=== PATIENT | female | born 1970 | race Caucasian/White ===

== ENCOUNTER 2022-05-05 11:11 | Emergency (ER) | payer OTHER ==
[~2022-05-05] VITALS: Ht 162.6 cm; Wt 59.0 kg
--- NOTE | 2022-05-05 11:30 | NUR ---
ASSUME CARE, STATED THAT FIGHTING WITH ROOM MATE AND FEELINGS FUNNING AND THINKS ROOM MATE PUT DRUG IN HER TEA THIS AM. HX OF VIPING POT, CHRONIC USER.
[2022-05-05 11:38] LABS: HEMATOCRIT 45.2 % (31.2-41.9); MEAN CORPUSCULAR HEMOGLOBIN 31.1 uug (24.7-32.8); MEAN CORPUSCULAR VOLUME 93.8 fL (75.5-95.3); PLATELET COUNT (AUTO) 216 K/uL (179-408)
[2022-05-05 12:02] LABS: BILIRUBIN,TOTAL 0.3 mg/dL (0.2-1.0); TOTAL PROTEIN, SERUM 7.8 g/dL (6.4-8.2)
[2022-05-05 12:05] LABS: ACETAMINOPHEN < 2.0 ug/mL (10-30); ETHANOL < 3 MG/DL (0-0)
--- NOTE | 2022-05-05 13:30 | NUR ---
AWAITING URINE DSU RESULTS
[2022-05-05 13:51] LABS: *BILIRUBIN,URIN NEGATIVE (NEGATIVE); *CLARITY,URINE CLEAR (CLEAR); *COLOR,URINE YELLOW (YELLOW); *KETONES,URINE NEGATIVE (NEGATIVE); *UROBILINOGEN,URINE 0.2 E.U./dl (NORMAL); LEUKOCYTE ESTERASE ,URINE NEGATIVE (NEGATIVE); NITRITE, URINE NEGATIVE (NEGATIVE); UGLUCOSE NEGATIVE (NEGATIVE)
[2022-05-05 13:52] LABS: *BLOOD, URINE TRACE (NEGATIVE)
[2022-05-05 14:07] LABS: *CANNABINOID, URINE POSITIVE (NEGATIVE); *COCCAINE, URINE NEGATIVE (NEGATIVE); *OPIATE, URINE NEGATIVE (NEGATIVE); *PHENCYCLIDINE SCREEN,URINE NEGATIVE (NEGATIVE)
[2022-05-05 14:19] LABS: *AMPHETAMINE, URINE NEGATIVE (NEGATIVE)
[2022-05-05 14:22] LABS: BACTERIA,URINE FEW /HPF (NONE SEEN); RBC,URINE 0-3 /HPF (0-3); SQUAMOUS EPITHELIAL CELL,UR FEW /HPF (NONE SEEN); WBC,URINE 0-3 /HPF (0-3)
--- NOTE | 2022-05-05 14:35 | NUR ---
DISCUSSED AND GIVE D/C INSTRUCTIONS AND LAB RESULTS FOR F/U WITH PCP.VERBALIZED UNDERSTANDING.
[2022-05-05 17:45] VITALS: BP 128/80
== END 2022-05-05 19:16 | disposition home or self-care (01) ==
LOC: ER 11:13
DX: R42 Dizziness and giddiness (principal); F12.90 Cannabis use, unspecified, uncomplicated; Z88.0 Allergy status to penicillin; Z88.7 Allergy status to serum and vaccine
CPT/HCPCS: 36415; 84484; 85025; 93005; A4663; G0480